=== PATIENT | male | born 1940 | race African-American/Black ===

== ENCOUNTER 2025-08-14 16:20 | Inpatient (IN) | payer MEDICARE, OTHER ==
[~2025-08-14] VITALS: Ht 182.9 cm; Wt 92.5 kg
[2025-08-14 17:35] LABS: PLATELET COUNT (AUTO) 212 K/uL (150-450); RED BLOOD CELL COUNT(AUTO) 5.03 MIL/uL (4.5-6.0); RED CELL DISTRIBUTION WIDTH 15.3 % (11.5-15.0); WHITE BLOOD COUNT (AUTO) 4.9 K/uL (4.3-11.0)
[2025-08-14 17:39] LABS: CALCIUM, SERUM 9.4 mg/dL (8.5-10.1); CREATININE 1.0 mg/dL (0.6-1.3); SODIUM SERUM 145 mmol/L (136-145); UREA NITROGEN, BLOOD 15 mg/dL (7-18)
[2025-08-14] MEDS: IV NS 0.9% 1,000 ML BAG IV ONE (17:40)
[2025-08-14] MEDS ORDERED: NITROGLYCERIN 0.4 MG/TAB BOTTLE SL PRN (18:30)
[2025-08-14] MEDS ORDERED: ONDANSETRON HCL/PF 4 MG/2 ML VIAL IVP PRN (18:30)
[2025-08-14] MEDS ORDERED: ACETAMINOPHEN 325 MG TABLET PO PRN (18:30)
[2025-08-14] MEDS ORDERED: MAGNESIUM HYDROXIDE 30 ML UDC PO PRN (18:30)
[2025-08-14] MEDS ORDERED: MAG HYDROX/AL HYDROX/SIMETH 30 ML UDC PO PRN (18:30)
[2025-08-14] MEDS ORDERED: Z GUARD REMEDY 4 OZ OINT TP PRN (18:30)
[2025-08-14 18:47] VITALS: BP 152/90; TEMP 97.5; O2SAT 97
[2025-08-14 20:00] VITALS: BP 150/94; TEMP 97.3; O2SAT 94
[2025-08-14] MEDS: IV NS 0.9% 1,000 ML IV PRN (22:44)
[2025-08-15] VITALS: BP 127/72; TEMP 98.2; O2SAT 100
[2025-08-15 04:00] VITALS: BP 126/80; TEMP 97.5; O2SAT 100
[2025-08-15 07:36] LABS: PLATELET COUNT (AUTO) 169 K/uL (150-450); RED BLOOD CELL COUNT(AUTO) 4.35 MIL/uL (4.5-6.0); RED CELL DISTRIBUTION WIDTH 15.4 % (11.5-15.0); WHITE BLOOD COUNT (AUTO) 4.9 K/uL (4.3-11.0)
[2025-08-15 07:43] LABS: CALCIUM, SERUM 8.5 mg/dL (8.5-10.1); CREATININE 0.9 mg/dL (0.6-1.3); PHOSPHORUS 3.6 mg/dL (2.5-4.9); SODIUM SERUM 146 mmol/L (136-145); UREA NITROGEN, BLOOD 13 mg/dL (7-18)
[2025-08-15 08:00] VITALS: BP 128/90; TEMP 98; O2SAT 98
[2025-08-15 08:04] LABS: LDL 121 mg/dL (0-99)
[2025-08-15] MEDS: ASPIRIN 81 MG TAB.CHEW PO SCH (08:13)
[2025-08-15] MEDS: PANTOPRAZOLE 40 MG TABLET.DR PO SCH (08:13)
[2025-08-15] MEDS ORDERED: MIRT-121 PO (09:14)
[2025-08-15] MEDS ORDERED: ASPI-1169 PO (09:14)
[2025-08-15] MEDS ORDERED: CLON0.1T PO (09:14)
[2025-08-15] MEDS ORDERED: METO-357 PO (09:14)
[2025-08-15] MEDS ORDERED: NIFE-35 PO (09:14)
[2025-08-15] MEDS ORDERED: LEVE500T20 PO (09:14)
[2025-08-15] MEDS ORDERED: APIX5TAB PO (09:14)
[2025-08-15] MEDS ORDERED: QUET25TA PO (09:14)
[2025-08-15] MEDS ORDERED: CARB-92 PO (09:14)
[2025-08-15] MEDS ORDERED: ACET325T53 PO (09:14)
[2025-08-15 12:00] VITALS: BP 127/94; TEMP 98.1; O2SAT 98
[2025-08-15 12:49] LABS: SERUM AMMONIA 17.0 umol/L (11-32)
[2025-08-15] MEDS ORDERED: ACETAMINOPHEN 325 MG TABLET PO PRN (13:00)
[2025-08-15] MEDS: METOPROLOL TARTRATE 50 MG TABLET PO ONE (13:07)
[2025-08-15] MEDS: CARBIDOPA/LEVODOPA 10/100 MG 1 UDTAB PO SCH (13:27)
[2025-08-15] MEDS: LEVETIRACETAM (250 MG) 250 MG TABLET PO SCH (13:27)
[2025-08-15] MEDS ORDERED: IV NS 0.9% 250 ML IV ONE (14:13)
[2025-08-15] MEDS ORDERED: IOHEXOL-350 100 ML VIAL IV ONE (14:13)
[2025-08-15 16:00] VITALS: BP 133/86; TEMP 98.1; O2SAT 97
[2025-08-15] MEDS: APIXABAN 5 MG TABLET PO SCH (16:40)
[2025-08-15] MEDS ORDERED: ASPIRIN 81 MG TAB.CHEW PO SCH (17:00)
[2025-08-15 20:00] VITALS: BP 137/89; TEMP 98.4; O2SAT 98
[2025-08-15] MEDS: MIRTAZAPINE 15 MG TABLET PO SCH (21:55)
[2025-08-15] MEDS: QUETIAPINE FUMARATE 25 MG TABLET PO SCH (21:55)
[2025-08-16] VITALS: BP 143/90; TEMP 97.8; O2SAT 97
[2025-08-16 04:00] VITALS: BP 140/85; TEMP 97.6; O2SAT 98
[2025-08-16 08:00] VITALS: BP 130/87; TEMP 97.3; O2SAT 99
[2025-08-16] MEDS: METOPROLOL SUCCINATE 50 MG TAB.SR.24H PO SCH (08:01)
[2025-08-16] MEDS: CLONIDINE HCL 0.1 MG TABLET PO SCH (08:14)
[2025-08-16] MEDS ORDERED: NIFEdipine XL (30MG) 30 MG TAB PO SCH (09:00)
[2025-08-16] MEDS: NIFEdipine XL (30MG) 30 MG TAB PO SCH (09:49)
[2025-08-16] MEDS: CYANOCOBALAMIN 500 MCG TABLET PO SCH (10:44)
[2025-08-16 12:00] VITALS: BP 106/78; TEMP 97.9; O2SAT 98
[2025-08-16 16:00] VITALS: BP 119/73; TEMP 97.7; O2SAT 98
[2025-08-16 20:00] VITALS: BP 114/73; TEMP 97.7; O2SAT 99
[2025-08-17] VITALS: BP 102/60; TEMP 97.3; O2SAT 99
[2025-08-17 02:03] LABS: APPEARANCE,URINE SLIGHTLY CLOUDY (CLEAR); BLOOD, URINE TRACE-INTA Ery/uL (NEGATIVE); LEUKOCYTE ESTERASE ,URINE 2+ (NEGATIVE); NITRITE, URINE POSITIVE (NEGATIVE); UGLUCOSE NEGATIVE (NEGATIVE)
[2025-08-17 02:12] LABS: ADD URINE CULTURE YES; SQUAMOUS EPITHELIAL CELL,UR Rare /HPF (None Seen)
[2025-08-17 02:19] LABS: AMPHETAMINE, URINE NEGATIVE (NEGATIVE); BARBITURATE, URINE NEGATIVE (NEGATIVE); BENZODIAZEPINE, URINE NEGATIVE (NEGATIVE); CANNABINOID, URINE NEGATIVE (NEGATIVE); COCCAINE, URINE NEGATIVE (NEGATIVE); OPIATE, URINE NEGATIVE (NEGATIVE)
[2025-08-17 04:00] VITALS: BP 127/69; TEMP 97.2; O2SAT 100
[2025-08-17 08:00] VITALS: BP 115/80; TEMP 97.3; O2SAT 99
[2025-08-17 08:40] VITALS: BP 115/80
[2025-08-17] MEDS: QUETIAPINE FUMARATE 25 MG TABLET PO SCH (08:40)
== END 2025-08-17 14:58 | DRG 205 ==
LOC: ER 17:11 → TELE1 18:31 → MEDSG1 08-17 08:45
PROVIDERS: ADMIT Nurse Practitioner Acute Care; ATTEND Nurse Practitioner Acute Care
DX: M94.0 Chondrocostal junction syndrome [Tietze] (principal); G93.41 Metabolic encephalopathy; R62.7 Adult failure to thrive; F29 Unspecified psychosis not due to a substance or known physiological condition; G20.A1 Parkinson's disease without dyskinesia, without mention of fluctuations; F02.80 Dementia in other diseases classified elsewhere, unspecified severity, without behavioral disturbance, psychotic disturbance, mood disturbance, and anxiety; G30.9 Alzheimer's disease, unspecified; I48.0 Paroxysmal atrial fibrillation; Z79.01 Long term (current) use of anticoagulants; I10 Essential (primary) hypertension; G40.909 Epilepsy, unspecified, not intractable, without status epilepticus; R53.1 Weakness; Z79.82 Long term (current) use of aspirin; Z79.899 Other long term (current) drug therapy
CPT/HCPCS: 36415; 70450-TC; 71045-TC; 75574; 80048-TC; 80061-TC; 80162-TC; 81001; 82140-TC; 82607-TC; 83735-TC; 84100-TC; 84443-TC; 84484-TC; 85025-TC; 87086-TC; 87186-TC; 93307-TC; 97110-TC; 97116-TC; 97530-TC; 97535-TC; A4223; G0378; J7030; J7050; Q9967